=== PATIENT | female | born 1940 | race Caucasian/White ===

== ENCOUNTER → 2020-11-01 | Outpatient (CLI) | payer MEDICARE, MEDICAID ==
[~2020-11-01] MED LIST: AVAPRO300 MG PO; COLACE 100 MG100 MG PO; ESTRACE1 MG PO; HYDROCODON-ACE1 EAC8 PO; LEVO-T25 MCG PO; PERCOCET PO; PROTONIX40 M4 PO; ULTRAM 50MG TAB50 MG PO; VASOTEC10 MG PO; XARELTO10 MG PO; ZOLPIDEM TARTRA10 MG PO
[2020-11-01 10:12] LABS: HEMATOCRIT 41.7 % (37.0-47.0); MCH 31.6 pg (26.0-34.0); MCHC 33.5 g/dL (28.0-37.0); MCV 94.4 fL (80.0-100.0); MPV 7.7 fl. (7.2-11.1); RBC 4.42 mil/uL (4.20-5.00); WBC 7.6 thou/uL (4.0-11.0)
[2020-11-01 10:16] LABS: URINE BILIRUBIN NEGATIVE (Negative); URINE BLOOD NEGATIVE (Negative); URINE CLARITY CLEAR; URINE COLOR YELLOW; URINE GLUCOSE-RANDOM NEGATIVE (Negative); URINE KETONES NEGATIVE (Negative); URINE LEUKOCYTES-REFLEX NEGATIVE (Negative); URINE NITRITE-REFLEX NEGATIVE (Negative); URINE PROTEIN NEGATIVE (Negative); URINE UROBILINOGEN 0.2 E.U./dl (0.2-1.0)
[2020-11-01 10:20] LABS: PROTIME 10.3 Seconds (9.20-11.50)
[2020-11-01 10:44] LABS: ALBUMIN 3.8 g/dL (3.4-5.0); CALCIUM 9.5 mg/dL (8.5-10.1); POTASSIUM 3.9 mmol/L (3.5-5.1); TOTAL BILIRUBIN 0.3 mg/dL (<0.1-1.0); TOTAL PROTEIN 7.7 g/dL (6.4-8.2)
--- NOTE | 2020-11-01 12:43 | EKG ---
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
== END ==
LOC: M.LAB 10-31 10:45
PROVIDERS: ATTEND Orthopaedic Surgery
DX: Z01.812 Encounter for preprocedural laboratory examination (principal); Z20.828 Contact with and (suspected) exposure to other viral communicable diseases; I25.2 Old myocardial infarction

== ENCOUNTER 2020-11-07 06:26 | Inpatient (IN) | payer MEDICARE, MEDICAID ==
[~2020-11-07] VITALS: Ht 167.6 cm; Wt 70.3 kg
--- NOTE | ~2020-11-07 | OP ---
[facility] [address] [place] [address] OPERATIVE REPORT Name: MARIAMA DELUCA Room: [address] [place].#: [id number] Admission: 11/07/20 Attend Phys: Diana Borden Discharge: Date of : 38 Report #: [id number] THIS REPORT FOR: cc: Perry Perez MD, [place]ot L. 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 POSTOPERATIVE DIAGNOSES: 1. 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 2. Biceps tendon tear. PROCEDURES: 1. Left reverse total shoulder arthroplasty. 2. Biceps tenodesis. SURGEON: Jensen Luna II, DO. LEAD BLENDER: ROBYN Prado ANESTHESIA: Per operative record. ESTIMATED BLOOD LOSS: Minimal. ANTIBIOTICS: Per operative record. DRAINS: None. COMPLICATIONS: None. CONDITION OF THE PATIENT: Stable to recovery room. DESCRIPTION OF PROCEDURE: The patient was taken to the operative suite and placed supine on the OR table, given appropriate anesthesia. The patient's affected shoulder was sterilely prepped and draped in modified beach chair position and all bony prominences well padded. Surgery began by an anterior deltopectoral incision over the shoulder. This was carried down to the subcutaneous tissues. The deltoid was retracted laterally and careful hemostasis was maintained The capsule was then found and the subscapularis was incised along the bicipital groove and reflected medially. The biceps tendon was shown to have a tear to the proximal aspect, this was tenodesed to the pectoralis with the biceps tenodesis being performed. The proximal portion of the biceps tendon was then resected and remaining rotator cuff was removed. The [address] [address] OPERATIVE REPORT Name: MARIAMA DELUCA Room: [address] IN [facility].#: [id number] Admission: 11/07/20 Attend Phys: Diana Borden Discharge: Date of : 38 Report #: [id number] head was then exposed out through the incision. Proximal reaming was performed down into the shaft and settled down as size 9, which had excellent chatter with reamings. The intramedullary alignment guide was then placed for the cutting block, checked for appropriate alignment and appropriate cut was made to the head, this was then removed. It was then broached in sequential fashion up to a size 9 which was left in place with the metal protective hubcap placed over the top of this. This was then retracted posteriorly and attention was turned to the glenoid. Excess labrum was removed from around the glenoid as well as the undersurface and inferior aspect. The glenosphere pin guide alignment device was then applied to the glenoid. Appropriate pin was then placed and was reamed in appropriate fashion down to punctate bleeding. This was then removed and the glenoid baseplate was then secured utilizing a central screw and 3 locking screws throughout the holes. The glenosphere was then applied with eccentric component and malleted into position. Attention was then turned back to the humerus, this was trialed with appropriate spacer, which showed excellent fit and fill and excellent stability of the shoulder through all range of motion. These final spacer was then malleted together on the back table in a monoblock portion with stem attached and this was then malleted into position within the shoulder. Final reduction was performed showing excellent stability of the shoulder with all range of motion without evidence of dislocation. Irrigation was then performed of the wound and was then closed utilizing a running Vicryl stitch through the deltoid and the subscap was secured utilizing #1 Vicryl to the remaining attachment of the humerus. Skin was closed with a 2-0 Vicryl and running Monocryl stitch. Dermabond, sterile dressing and sling were applied. The patient transported to recovery room in stable condition. Counts were correct throughout the procedure. By: 38 52Jensen Luna II, DO /nt
[~2020-11-07 06:26] MED LIST changes: -COLACE 100 MG100 MG PO; -PERCOCET PO; -XARELTO10 MG PO
[2020-11-07 11:00] VITALS: BP 119/66
[2020-11-07 16:15] VITALS: BP 121/66
[2020-11-07 20:00] VITALS: BP 105/65
[2020-11-08] VITALS: BP 101/52
[2020-11-08 03:56] VITALS: BP 98/49
[2020-11-08] MEDS ORDERED: XARELTO10 MG PO (07:10)
[2020-11-08] MEDS ORDERED: HYDROCODON-ACE1 EAC8 PO (07:10)
[2020-11-08] MEDS ORDERED: COLACE 100 MG100 MG PO (07:10)
[2020-11-08 11:12] VITALS: BP 98/49
[2020-11-08] MEDS ORDERED: PERCOCET PO (12:28)
[2020-11-08 12:55] VITALS: BP 98/49
[2020-11-08 13:53] VITALS: BP 98/49
== END 2020-11-08 13:45 | disposition home health service (06) | DRG 483 ==
LOC: M.ORTHSURG 06:26 → M.TBA 09:23 → M.3W 09:23
PROVIDERS: ADMIT Internal Medicine; ATTEND Internal Medicine
PROC: 0RRK00Z Replacement of Left Shoulder Joint with Reverse Ball and Socket Synthetic Substitute, Open Approach (ICD-10-PCS; principal; 2020-11-07)
DX: M19.012 Primary osteoarthritis, left shoulder (principal); M75.102 Unspecified rotator cuff tear or rupture of left shoulder, not specified as traumatic; M75.22 Bicipital tendinitis, left shoulder; I10 Essential (primary) hypertension; E03.9 Hypothyroidism, unspecified; Z90.710 Acquired absence of both cervix and uterus; Z98.42 Cataract extraction status, left eye; Z98.41 Cataract extraction status, right eye; Z79.899 Other long term (current) drug therapy; Z88.8 Allergy status to other drugs, medicaments and biological substances; Z90.49 Acquired absence of other specified parts of digestive tract